=== PATIENT | female | born 1960 | race Caucasian/White ===

== ENCOUNTER 2016-12-13 22:08 | Emergency (ER) | payer BC ==
[~2016-12-13] VITALS: Ht 152.4 cm; Wt 50.0 kg
[~2016-12-13 22:08] MED LIST: METO50TA11 PO; ROSU40 PO; TRAM50TA PO
[2016-12-13 22:27] VITALS: BP 155/88; PULSE 94; RESP 18; TEMP 98.4; O2SAT 99
== END 2016-12-14 00:19 | disposition left against medical advice (07) ==
LOC: PHED 22:08
DX: N60.02 Solitary cyst of left breast (principal)
CPT/HCPCS: 99281